=== PATIENT | female | born 1990 | race Caucasian/White ===

== ENCOUNTER 2021-12-11 16:17 | Emergency (ER) | payer OTHER, SELFPAY ==
[2021-12-11 16:39] VITALS: BP 114/81; PULSE 75; RESP 20; TEMP 36.1; O2SAT 100
[2021-12-11 18:16] VITALS: BP 102/65; PULSE 70; RESP 17; TEMP 36.5; O2SAT 100
--- NOTE | 2021-12-11 19:57 | ED.GENADULT ---
HPI - General Adult General Chief complaint: Unspecified Stated complaint: abd pain Time Seen by Provider: 12/11/21 19:37 Source: patient and RN notes reviewed Mode of arrival: ambulatory Limitations: no limitations History of Present Illness HPI narrative: This is 31 year old female who presents for evaluation of left upper abdominal pain. She developed pain 2 weeks ago . She was evaluated at [facility] with labs and CT scan. She was diagnosed with constipation and given an enema. She states she is having regular BMs and taking laxatives but she is still having abdominal pain. She describes pain has constant cramping. Her pain is worse with eating fatty foods and some movement. She has some nausea but denies vomiting, fever, or chills. She also denies any urinary symptoms. She states last night she was having sweats. She has appointment with PCP on Saturday but she did not want to wait. Related Data Allergies Allergy/AdvReac Type Severity Reaction Status Date / Time acetaminophen Allergy Mild TYL #3 Verified 11/30/15 20:08 (VICODIN TOLERATED PER PATIENT) codeine Allergy Unknown Unknown Verified 12/11/21 20:22 Review of Systems Review of Systems: All systems reviewed & are unremarkable except as noted in HPI and below [facility] Surgical History Surgical History (Updated 12/11/21 @ 20:09 by Deja Gray MD) No pertinent past surgical history Family History Family History (Updated 07/29/14 @ 07:13 by DOCTOR UNKNOWN) Father Hypertension Grandparent Family history of coronary artery disease Diabetes mellitus Social History Social History Alcohol intake: never Exam Const: General: cooperative and no acute distress HENMT: Head: normocephalic and atraumatic Face and sinus: face symmetric Eyes: Pupils: Equal, round and reactive pupils present EOM: EOMs intact bilaterally Resp: Effort & Inspection: normal respiratory effort and able to speak in complete sentences Auscultation: clear to auscultation bilaterally Cardio: Palpation: normal PMI Rate: regular rate Rhythm: regular rhythm GI: GI Palp: Yes Soft to palpation, Yes Tenderness to palpation present (GI) (LUQ), No Guarding due to palpation present (GI) and No Rigid due to palpation Skin: General skin exam: normal color Neuro: General: patient oriented x3 Course Reevaluation(s) Reevaluation #1: I Reviewed patients labs. She reports she has not had pain for 1 hour after taking GI cocktail. With unremarkable labs . I Do not think she needs another CT at this time. She will follow up with PCP on saturday. Date: 12/11/21 Time: 21:55 Vital Signs Vital signs: Vital Signs Temperature 97.0 F L 12/11/21 16:39 Pulse Rate 75 12/11/21 16:39 Respiratory Rate 20 12/11/21 16:39 Blood Pressure 114/81 12/11/21 16:39 Pulse Oximetry 100 12/11/21 16:39 Temperature 97.7 F 12/11/21 18:16 Pulse Rate 77 12/11/21 22:12 Respiratory Rate 18 12/11/21 22:12 Blood Pressure 128/65 12/11/21 22:12 Pulse Oximetry 99 12/11/21 22:12 Medical Decision Making Vital Signs Vital Signs: Vital Signs Temperature 97.0 F L 12/11/21 16:39 Pulse Rate 75 12/11/21 16:39 Respiratory Rate 20 12/11/21 16:39 Blood Pressure 114/81 12/11/21 16:39 Pulse Oximetry 100 12/11/21 16:39 Temperature 97.7 F 12/11/21 18:16 Pulse Rate 77 12/11/21 22:12 Respiratory Rate 18 12/11/21 22:12 Blood Pressure 128/65 12/11/21 22:12 Pulse Oximetry 99 12/11/21 22:12 Lab Data Lab results reviewed: Yes I reviewed the patient's lab results. Result diagrams: 12/11/21 20:10 12/11/21 20:10 Labs: Lab Results 12/11/21 12/11/21 12/11/21 Range/Units 20:10 20:10 20:10 WBC 3.2 L (4.5-10.0) K/mm3 RBC 3.50 L (4.2-5.4) M/mm3 Hgb 11.2 L (12.0-15.0) g/dL Hct 34.1 L (37.0-47.0) % MCV 97.4 (80-100) fl MCH 32.0 (26-34) pg MCHC 32.8 (32-36) g/d
[2021-12-11 20:18] VITALS: BP 118/77; PULSE 72; RESP 18; O2SAT 98
[2021-12-11 20:18] LABS: Basophils Percent Auto 0.6 % (0.2-1.2); Eosinophils Percent Auto 0.6 % (0-4.4); Hematocrit 34.1 % (37.0-47.0); Hemoglobin 11.2 g/dL (12.0-15.0); Lymphocytes Percent Auto 22.2 % (18.3-44.2); Mean Corpuscular HGB Conc 32.8 g/dl (32-36); Mean Corpuscular Volume 97.4 fl (80-100); Mean Platelet Volume 8.8 fl (7.4-10.4); Monocytes Absolute Auto 0.6 K/mm3 (0.1-0.6); Monocytes Percent Auto 18.4 % (2.6-8.5); Neutrophils Absolute Auto 1.8 K/mm3 (1.3-6.7); Neutrophils Percent Auto 58.2 % (45.5-73.1); Platelet Count Result 98 k/mm3 (150-375); Red Cell Distribution Width 13.2 % (11.5-14.5); White Blood Count 3.2 K/mm3 (4.5-10.0)
[2021-12-11] MEDS: BELLADONNA ALK/PHENOB ELIX 10 ML, MAG HYDROX/ALUMINUM HYD/SIMETH 30 ML, LIDOCAINE HCL 2... PO (20:20)
[2021-12-11 20:27] LABS: Alanine Aminotransferase 16 U/L (4-35); Albumin Level 4.2 g/dL (3.5-5.1); Alkaline Phosphatase 62 U/L (38-126); Anion Gap 8 mmol/L (8-16); Aspartate Amino Transferase 26 U/L (14-36); Bilirubin,Total 0.2 mg/dL (0.2-1.3); Blood Urea Nitrogen 11 mg/dL (7-17); Carbon Dioxide 26 mmol/L (22-30); Chloride 102 mmol/L (98-107); Estimated CRCL calculation 84 ml/min; Estimated Glomerular Filt Rate > 60; Glucose 93 mg/dL (65-110); Lipase 29 U/L (23-300); Potassium 3.5 mmol/L (3.4-5.0); Sodium 136 mmol/L (137-145)
[2021-12-11 20:32] LABS: Add Urine Microscopic? YES; Appearance Urine Cloudy (Clear); Bilirubin Urine Negative (Negative); Blood Urine 1+ (Negative); Color Urine Yellow (Yellow); Glucose Urine UA Negative (Negative); Ketones Urine 1+ mg/dL (Negative); Leukocyte Esterase Ur Negative LEU/UL (Negative); Mucus Urine Heavy /lpf; Nitrate Urine Negative (Negative); Protein Urine 2+ mg/dL (Negative); Specific Grav Ur 1.025 (1.001-1.035); Squamous Epithelial Cell Urine Many /hpf (Few); Urobilinogen Urine Negative mg/dL (<2.0); WBC Urine 0-3 /hpf
[2021-12-11 22:12] VITALS: BP 128/65; PULSE 77; RESP 18; O2SAT 99
== END 2021-12-11 22:11 | disposition home or self-care (01) ==
PROVIDERS: Emergency Provider General Practice; PCP Family Medicine
DX: R10.12 Left upper quadrant pain (principal)
CPT/HCPCS: 36415; 80053; 81001; 83690; 85025; 99283; A9270

== ENCOUNTER 2022-06-20 00:35 | Day surgery (SDC) | payer OTHER, SELFPAY ==
[2022-06-07 15:04] VITALS: BMI 19.2
[2022-06-20 06:47] VITALS: BP 104/55; PULSE 61; RESP 15; TEMP 36.2; O2SAT 100; BMI 18.4
[2022-06-20] MEDS: LACTATED RINGERS 1,000 ML 150 ML IV CONT (06:55)
--- NOTE | 2022-06-20 07:48 | PM.HPGS ---
History of Present Illness History of Present Illness Consent: Risks, benefits, and alternatives have been discussed and questions answered. Patient agrees to proceed with procedure. Chief complaint: GERD, anemia, weight loss Narrative: Tracy Cox is a 32 year old female with epigastric pain while she was using nsaid's, symptom improved after omeprazole and stopped using nsaid's, also weight loss. Never had scopes. Review of Systems Constitutional: Constitutional: Denies headache(s) and Denies weakness Eyes: Eyes: Denies blurry vision ENT: Reports Normal hearing present, Denies headache(s) and Denies neck pain Cardiovascular: Cardiovascular: Denies chest pain and Denies dyspnea Respiratory: Respiratory: Denies dyspnea Gastrointestinal: Gastrointestinal: Reports no additional gastrointestinal complaints Genitourinary: Genitourinary: Denies dysuria Musculoskeletal: Musculoskeletal: Denies neck pain Integumentary/Breasts: Skin/Breast: Denies dry skin Neurologic: Reports Normal hearing present, Denies headache(s) and Denies weakness Psychiatric: Psychiatric: Denies anxiety Endocrine: Endocrine: Denies change in body appearance Hematologic/Lymphatic: Hematologic/Lymphatic: Denies easy bleeding Allergic/Immunologic: Allergic/Immunologic: Denies urticaria PMFSH Past Medical History Medical History (Updated 06/20/22 @ 07:49 by Esvin Haynes MD) Chronic anemia Chronic otitis media Constipation Weight loss Surgical History Surgical History History of tonsillectomy No pertinent past surgical history Family History Family History Father Hypertension Grandparent Family history of coronary artery disease Diabetes mellitus Social History Social History (Updated 04/11/22 @ 11:08 by Tracy Jordan) Social History: Single Smoking status: Former smoker Tobacco type: cigarettes Second hand tobacco smoke exposure: No Alcohol intake: current Alcohol use details: socially Substance use: current Substance use type: marijuana Other substance usage details: Daily Last use: Daily use Living arrangements: with family Gender identity (if verbalized by the patient): Female Sexual Orientation (if Verbalized by the Patient): Straight or Heterosexual Spiritual care concerns: No Meds Home Medications and Allergies Home Medications Medication Instructions Recorded Confirmed Type mirtazapine 15 mg tablet 15 mg PO QHS #90 tabs 01/18/22 06/20/22 Rx omeprazole 40 mg capsule,delayed 40 mg PO DAILY #30 caps 01/18/22 06/20/22 Rx release escitalopram oxalate 5 mg tablet 5 mg PO DAILY 06/07/22 06/20/22 History Allergies Allergy/AdvReac Type Severity Reaction Status Date / Time acetaminophen Allergy Mild TYL #3 Verified 06/20/22 06:46 (VICODIN TOLERATED PER PATIENT) codeine Allergy Unknown Unknown Verified 06/20/22 06:46 Vital Signs Vital Signs - 24 hr 06/20/22 06:47 Temperature 97.2 F L Pulse Rate 61 Respiratory Rate 15 Blood Pressure 104/55 L Pulse Oximetry 100 Oxygen Delivery Room Air Exam Const: General: comfortable and no acute distress HENMT: General nose exam: Normal nares present Eyes: General: appearance normal, both eyes and all related structures Neck: Neck: no JVD Resp: Auscultation: clear to auscultation bilaterally Cardio: Rate: regular rate Rhythm: regular rhythm GI: Inspection: non-distended GI Palp: Yes Soft to palpation Skin: General skin exam: normal color Neuro: General: gait normal Speech: normal speech Extrem: General: normal to inspection Psych: Mental Status: mental status grossly normal Assessment and Plan Assessment and plan (1) GERD (gastroesophageal reflux disease): Code(s): K21.9 - Gastro-esophageal reflux disease without esophagitis Status: Acut
--- NOTE | 2022-06-20 07:52 | WPDANESEPPF ---
Anes - Initial Pre Proc Eval Procedure: Operation Date: 06/20/22 08:00 Proposed Procedures p Esophagogastroduodenoscopy - Esvin Haynes MD Date/Time: 06/20/22 07:52 Surgeon: Esvin Haynes MD Pre Op Diagnosis: GERD, anemia, weight loss Patient Data Age: 32 Gender: F Height: 1.68 m Weight: 51.8 kg Last Vital Signs Temp 97.2 F L 06/20/22 06:47 Pulse 61 06/20/22 06:47 Resp 15 06/20/22 06:47 BP 104/55 L 06/20/22 06:47 Pulse Ox 100 06/20/22 06:47 O2 Del Method Room Air 06/20/22 06:47 Allergies Allergy/AdvReac Type Severity Reaction Status Date / Time acetaminophen Allergy Mild TYL #3 Verified 06/20/22 06:46 (VICODIN TOLERATED PER PATIENT) codeine Allergy Unknown Unknown Verified 06/20/22 06:46 Home Medications Medication Instructions Recorded Confirmed Type mirtazapine 15 mg tablet 15 mg PO QHS #90 tabs 01/18/22 06/20/22 Rx omeprazole 40 mg capsule,delayed 40 mg PO DAILY #30 caps 01/18/22 06/20/22 Rx release escitalopram oxalate 5 mg tablet 5 mg PO DAILY 06/07/22 06/20/22 History Patient hx anesthesia problems: none Family hx anesthesia problems: none Results Review: All pre-operative results and documents have been reviewed as part of the pre-operative evaluation. [facility] Past Medical History Medical History (Updated 06/20/22 @ 07:49 by Esvin Haynes MD) Chronic anemia Chronic otitis media Constipation Weight loss Surgical History Surgical History History of tonsillectomy No pertinent past surgical history Family History Family History Father Hypertension Grandparent Family history of coronary artery disease Diabetes mellitus Social History Social History (Updated 04/11/22 @ 11:08 by Tracy Jordan) Social History: Single Smoking status: Former smoker Tobacco type: cigarettes Second hand tobacco smoke exposure: No Alcohol intake: current Alcohol use details: socially Substance use: current Substance use type: marijuana Other substance usage details: Daily Last use: Daily use Living arrangements: with family Gender identity (if verbalized by the patient): Female Sexual Orientation (if Verbalized by the Patient): Straight or Heterosexual Spiritual care concerns: No Anes - Eval Final PreProcedure Day of Procedure 06/20/22 07:52 Patient weight: normal Heart: regular rate and rhythm Lungs: clear to auscultation Airway: Mallampati scale class II Neurological: alert and oriented Last oral intake: >/= 8 hours ASA classification: II Emergent: no Anesthetic plan: proceed Anesthesia type and monitoring: general GIVS and standard monitoring Results Review: All pre-operative results and documents have been reviewed as part of the pre-operative evaluation. Informed Consent: The patient's anesthetic plan and its attendant risks and benefits were discussed with the patient/family/POA. Questions were solicited and answers provided to the satisfaction of the patient/family/POA.
[2022-06-20 08:09] VITALS: BP 83/63; PULSE 68; RESP 17; O2SAT 100
[2022-06-20 08:19] VITALS: BP 101/66; PULSE 52; RESP 20; O2SAT 100
[2022-06-20 08:29] VITALS: BP 117/66; PULSE 59; RESP 19; O2SAT 100
== END 2022-06-20 08:35 | disposition home or self-care (01) ==
PROVIDERS: PCP Family Medicine; Visit Provider Internal Medicine Gastroenterology
PROC: 0DJ08ZZ Inspection of Upper Intestinal Tract, Via Natural or Artificial Opening Endoscopic (ICD-10-PCS; CPT 43235; principal; 2022-06-20 08:00)
DX: K29.50 Unspecified chronic gastritis without bleeding (principal); K21.9 Gastro-esophageal reflux disease without esophagitis; R63.4 Abnormal weight loss; Z79.1 Long term (current) use of non-steroidal anti-inflammatories (NSAID); D64.9 Anemia, unspecified; K59.00 Constipation, unspecified; Z87.891 Personal history of nicotine dependence; F12.90 Cannabis use, unspecified, uncomplicated
CPT/HCPCS: 43239; 87081; 88305; 88342; J2704; J7120

== ENCOUNTER 2024-09-02 07:39 | Day surgery (SDC) | payer OTHER, SELFPAY ==
[2024-08-13 12:08] VITALS: BMI 17.0
[2024-08-18 13:49] VITALS: BMI 18.1
[2024-09-02] VITALS (7 sets, daily range): BP systolic 83–98; BP diastolic 44–61; PULSE 48–67; RESP 14–15; TEMP 36.6; O2SAT 96–100
[2024-09-02] MEDS: LACTATED RINGERS 1,000 ML 150 ML IV CONT (08:42)
--- NOTE | 2024-09-02 09:03 | PM.HPGS ---
History of Present Illness History of Present Illness Consent: Risks, benefits, and alternatives have been discussed and questions answered. Patient agrees to proceed with procedure. Chief complaint: history of ulcerative gastritis Narrative: Tracy Cox is a 34 year old female referred for EGD. Patient has a history of gastric ulcerations in June of 2022. At that time it was attributed to ibuprofen. She subsequently has discontinued this medication. She has been may resolve 40mg p.o. daily subsequently. She was advised to return for follow-up EGD in several months but is only now able to return. She states that symptoms have improved dramatically. She denies any bleeding or weight loss. She only occasionally has indigestion. Family history is noncontributory. Review of Systems Review of Systems: All systems reviewed & are unremarkable except as noted in HPI and below PMFSH Past Medical History Medical History (Updated 09/02/24 @ 06:54 by Kenneth Thakkar, ) Chronic anemia Chronic otitis media Constipation GERD (gastroesophageal reflux disease) Weight loss Surgical History Surgical History History of tonsillectomy No pertinent past surgical history Family History Family History Father Hypertension Grandparent Family history of coronary artery disease Diabetes mellitus Social History Social History (Updated 04/11/22 @ 11:08 by Tracy Jordan) Social History: Single Smoking status: Former smoker Tobacco type: cigarettes Second hand tobacco smoke exposure: No Alcohol intake: never Alcohol use details: socially Substance use: current Substance use type: marijuana Other substance usage details: Daily Last use: Daily use Living arrangements: with family Occupation/Education: occupation Gender identity (if verbalized by the patient): Female Sexual Orientation (if Verbalized by the Patient): Straight or Heterosexual Spiritual care concerns: No Meds Home Medications and Allergies Home Medications Medication Instructions Recorded Confirmed Type escitalopram oxalate 5 mg tablet 5 mg PO DAILY #90 tabs 07/30/24 09/02/24 Rx mirtazapine 7.5 mg tablet 7.5 mg PO QHS #90 tabs 07/30/24 09/02/24 Rx omeprazole 40 mg capsule,delayed 40 mg PO DAILY #90 caps 07/30/24 09/02/24 Rx release Allergies Allergy/AdvReac Type Severity Reaction Status Date / Time acetaminophen Allergy Intermediate Hives Verified 09/02/24 08:38 [From Tylenol-Codeine #3] codeine Allergy Intermediate Hives Verified 09/02/24 08:38 [From Tylenol-Codeine #3] Vital Signs Vital Signs - 24 hr 09/02/24 08:38 Temperature 97.8 F Pulse Rate 67 Respiratory Rate 14 Blood Pressure 95/47 L Pulse Oximetry 100 Oxygen Delivery Room Air Exam Narrative: Physical exam reveals patient to be alert. Vital signs stable. HEENT exam is unremarkable. Patient is anicteric. Lungs are clear to auscultation and percussion heart is without murmur or extra sounds. Abdomen bowel sounds are present soft nontender with no organomegaly. Assessment and Plan Assessment and plan (1) NSAID induced gastritis: Code(s): K29.60 - Other gastritis without bleeding; T39.395A - Adverse effect of other nonsteroidal anti-inflammatory drugs [NSAID], initial encounter Status: Acute Assessment and Plan: Patient apparently had ulcerative gastritis in June of 2022 attributed to nonsteroidal anti-inflammatory agent use. Plan for follow-up EGD at this time. She should continue to avoid these. She may benefit from PPI use as needed. Low-dose omeprazole advised further recommendations may be given after endoscopy.
--- NOTE | 2024-09-02 09:05 | P.PNAN_ITS ---
Anes - Initial Pre Proc Eval Procedure: Operation Date: 09/02/24 09:30 Proposed Procedures p Esophagogastroduodenoscopy - Sai Ellis MD Date/Time: 09/02/24 09:05 Surgeon: Sai Ellis MD Pre Op Diagnosis: history of ulcerative gastritis Patient Data Age: 34 Gender: F Height: 1.7 m Weight: 48.5 kg Last Vital Signs Temp 36.6 C 09/02/24 08:38 Pulse 67 09/02/24 08:38 Resp 14 09/02/24 08:38 BP 95/47 L 09/02/24 08:38 Pulse Ox 100 09/02/24 08:38 O2 Del Method Room Air 09/02/24 08:38 Allergies Allergy/AdvReac Type Severity Reaction Status Date / Time acetaminophen Allergy Intermediate Hives Verified 09/02/24 08:38 [From Tylenol-Codeine #3] codeine Allergy Intermediate Hives Verified 09/02/24 08:38 [From Tylenol-Codeine #3] Home Medications Medication Instructions Recorded Confirmed Type escitalopram oxalate 5 mg tablet 5 mg PO DAILY #90 tabs 07/30/24 09/02/24 Rx mirtazapine 7.5 mg tablet 7.5 mg PO QHS #90 tabs 07/30/24 09/02/24 Rx omeprazole 40 mg capsule,delayed 40 mg PO DAILY #90 caps 07/30/24 09/02/24 Rx release HCG: negative Patient hx anesthesia problems: none Family hx anesthesia problems: none Results Review: All pre-operative results and documents have been reviewed as part of the pre- operative evaluation. [facility] Past Medical History Medical History Chronic anemia Chronic otitis media Constipation GERD (gastroesophageal reflux disease) Weight loss Surgical History Surgical History History of tonsillectomy No pertinent past surgical history Family History Family History Father Hypertension Grandparent Family history of coronary artery disease Diabetes mellitus Social History Social History Social History: Single Smoking status: Former smoker Tobacco type: cigarettes Second hand tobacco smoke exposure: No Alcohol intake: never Alcohol use details: socially Substance use: current Substance use type: marijuana Other substance usage details: Daily Last use: Daily use Living arrangements: with family Occupation/Education: occupation Gender identity (if verbalized by the patient): Female Sexual Orientation (if Verbalized by the Patient): Straight or Heterosexual Spiritual care concerns: No Anes - Eval Final PreProcedure Day of Procedure 09/02/24 09:05 Patient weight: normal Heart: regular rate and rhythm Lungs: clear to auscultation Airway: Mallampati scale class 1 Neurological: alert and oriented Last oral intake: >/= 8 hours ASA classification: II Emergent: no Anesthetic plan: proceed Anesthesia type and monitoring: general GIVS Results Review: All pre-operative results and documents have been reviewed as part of the pre- operative evaluation. Informed Consent: The patient's anesthetic plan and its attendant risks and benefits were discussed with the patient/family/POA. Questions were solicited and answers provided to the satisfaction of the patient/family/POA.
--- NOTE | 2024-09-02 10:52 | SUR.PHASEII ---
Pt's HR in recovery 48-53. HR pre-procedure 67. Pt denies dizziness, lightheadedness. Baseline blood pressure. Per Dr. Thakkar, pt uri for D/C. Pt A&ox4.
--- NOTE | 2024-09-02 10:56 | WPDANESPN ---
Anes - Prog Note Post-Op Date/Time: 09/02/24 10:56 Cardiovascular status: normal Respiratory status: normal Airway patency: baseline Mental status: baseline Post-Op hydration status: normal Vital Signs: Last Vital Signs Temp 36.6 C 09/02/24 08:38 Pulse 53 L 09/02/24 10:50 Resp 15 09/02/24 10:50 BP 96/53 L 09/02/24 10:50 Pulse Ox 100 09/02/24 10:50 O2 Del Method Room Air 09/02/24 10:50 Pain Score (VAS): 0 I/O: Intake & Output 09/01/24 09/02/24 09/02/24 23:59 07:59 15:59 Intake Total 750 Balance 750 Post-procedural complaints: none Patient Feedback: Patient satisfied with anesthetic care.
== END 2024-09-02 10:57 | disposition home or self-care (01) ==
PROVIDERS: PCP Family Medicine; Visit Provider Internal Medicine Gastroenterology
PROC: 0DJ08ZZ Inspection of Upper Intestinal Tract, Via Natural or Artificial Opening Endoscopic (ICD-10-PCS; CPT 43235; principal; 2024-09-02 09:30)
DX: K25.3 Acute gastric ulcer without hemorrhage or perforation (principal)
CPT/HCPCS: 43239

== ENCOUNTER 2024-09-02 09:23 | Outpatient (NON) | payer OTHER, SELFPAY | END 2024-09-02 09:24 | disposition home or self-care (01) | LOC: ANHLAB 09-03 09:24 | PROVIDERS: PCP Family Medicine; Visit Provider Internal Medicine Gastroenterology | DX: K29.60 Other gastritis without bleeding (principal); T39.395A Adverse effect of other nonsteroidal anti-inflammatory drugs [NSAID], initial encounter | CPT/HCPCS: 88305; 88342 ==